=== PATIENT | female | born 1935 | race Caucasian/White ===

== ENCOUNTER 2020-03-02 10:43 | Outpatient (CLI) | payer MEDICARE, BC, SELFPAY ==
--- NOTE | 2020-03-02 10:50 | MM_ITS ---
WS: [id number] BILATERAL DIGITAL SCREENING MAMMOGRAPHY WITH CAD CLINICAL INFORMATION: SCREENING HISTORY: Screening mammogram. No current complaints. COMPARISON: TECHNIQUE: Bilateral CC and MLO views. FINDINGS: Scattered fibroglandular densities bilaterally. No suspicious focal mass, asymmetry, calcifications, or architectural distortion. No evidence of malignancy. Punctate and lucent centered calcifications. Vascular calcification. MM/[id number] IMPRESSION: BI-RADS: 2-Benign FOLLOW UP: 1 Year Follow-up Recommend return to annual screening mammography.
== END 2020-03-02 10:44 | disposition home or self-care (01) ==
LOC: RADSHAW 10:48
PROVIDERS: PCP Family Medicine; Visit Provider Family Medicine
DX: Z12.31 Encounter for screening mammogram for malignant neoplasm of breast (principal)
CPT/HCPCS: 77067

== ENCOUNTER 2021-06-06 09:13 | Outpatient (CLI) | payer MEDICARE, BC, SELFPAY ==
--- NOTE | 2021-06-06 09:25 | MM_ITS ---
WS: [id number] BILATERAL SCREENING DIGITAL MAMMOGRAM WITH CAD HISTORY: SCREENING COMPARISON: 02/23/2020 Bilateral CC and MLO views submitted. Computer aided detection analyzed. Breast composition: There are scattered areas of fibroglandular density. No suspicious masses, microc alcifications or architectural distortion. Benign calcifications in each breast. MM/[id number] IMPRESSION: BI-RADS: 2-Benign FOLLOW UP: 1 Year Follow-up
== END 2021-06-06 09:14 | disposition home or self-care (01) ==
LOC: RADSHAW 09:22
PROVIDERS: PCP Nurse Practitioner Family; Visit Provider Nurse Practitioner Family
DX: Z12.31 Encounter for screening mammogram for malignant neoplasm of breast (principal)
CPT/HCPCS: 77067

== ENCOUNTER 2022-06-27 10:24 | Emergency (ER) | payer MEDICARE, BC, SELFPAY ==
[2022-06-27 10:27] VITALS: BP 181/95; PULSE 79; RESP 18; TEMP 36.7; O2SAT 96; BMI 25.3
--- NOTE | 2022-06-27 10:50 | ED_ITS ---
HPI - Fall General: Chief Complaint: Fall Stated Complaint: Fall Time Seen by Provider: 06/27/22 10:27 Source: patient Mode of arrival: ambulatory History of Present Illness: 87 yo female presents emergency room via EMS after a fall at home. She had gone outside her slippers had some ice or water on it and when she was back in her kitchen she slipped and fell hit her right upper arm on a cabinet. She did not strike her head she did not lose consciousness she is complaining of pain in proximal humerus she received 100 mcg of fentanyl in the field. She denies any pain or injury anywhere else. Any movement or even light palpation precipitates severe pain. MD complaint: fall Onset (ago): minute(s) Fall from: standing Place fall occurred: home Loss of consciousness: None Prolonged down time: no Symptoms prior to fall: none Context: tripped/slipped Location of injury - extremities: Right: arm Quality: sharp Associated symptoms-after fall: Denies abdominal pain, chest pain, confusion, difficulty walking, headache(s), hematuria, lightheadedness, neck pain, numbness, short of breath, vertigo or weakness Review of Systems Const: Denies: fever(s), chills, body aches, change in appetite, fatigue or malaise ENMT: Denies: throat pain, ear or mastoid pain, nasal discharge or nasal congestion Card: Denies: chest pain or lightheadedness Resp: Denies: dyspnea, productive cough or non-productive cough GI: Denies: abdominal pain, nausea or vomiting : Denies: hematuria Musc: Denies: neck pain Skin/Breast: Denies: rash or pruritus Neuro: Denies: headache(s), difficulty walking, vertigo or confusion PFS ED PFSH: Medical History (Updated 06/27/22 @ 12:19 by Stanley Valencia DO) No significant past medical history Surgical History (Updated 06/27/22 @ 10:57 by Stanley Valencia DO) No pertinent past surgical history Social History (Updated 06/27/22 @ 10:58 by Stanley Valencia DO) Smoking and tobacco status: never smoked Alcohol intake: never Physical Exam Const: GENERAL APPEARANCE: cooperative and comfortable ORIENTATION/CONSCIOUSNESS: Yes awake, Yes oriented to person, Yes oriented to place and Yes oriented to time HENMT: COMMON NORMALS: normocephalic, atraumatic and hearing grossly normal bilaterally HEAD & SCALP: normocephalic and atraumatic Resp: COMMON NORMALS: normal respiratory effort, No retractions, No use of accessory muscles and clear to auscultation bilaterally AUSCULTATION: clear to auscultation bilaterally Cardio: COMMON NORMALS: regular rate, regular rhythm and No murmurs present (Cardio) RATE: regular rate RHYTHM: regular rhythm GI: COMMON NORMALS: Soft to palpation and No hepatosplenomegaly present AUSCULTATION: Yes normoactive bowel sounds PALPATION: Yes Soft to palpation, No Tenderness to palpation present (GI), No Guarding due to palpation present (GI) and Yes No hepatosplenomegaly present Extremity: COMMON NORMALS: capillary refill normal and no pedal edema NARRATIVE EXTREMITY EXAM: Moderate swelling and significant pain with palpation of the left proximal humerus Neuro: SENSORIUM/ORIENTATION: Yes oriented to person, Yes oriented to place and Yes oriented to time Skin: COMMON NORMALS: no rashes or lesions noted GENERAL SKIN EXAM: no luisa hes or lesions noted Course Vital Signs: Vital signs: Vital Signs Temperature 98.1 F 06/27/22 10:27 Pulse Rate 79 06/27/22 10:27 Respiratory Rate 18 06/27/22 10:27 Blood Pressure 181/95 06/27/22 10:27 Pulse Oximetry 96 06/27/22 10:27 Oxygen Delivery Me thod 06/27/22 10:27 MDM - Fall Medical Decision Making Fracture in the body of the scapula comminuted and slightly displaced. Dr. Servin is on-call reviewed with him he recommends sling and follow-up in the Ortho clinic. Reviewed with the patient prescribed hydrocodone to use as needed for pain. Case management make arrangements for follow-up. Medical Records I reviewed the patient's medical records. Lab Data I reviewed the patient's lab results. Radiology Impressions Humerus X-Ray 06/27/22 10:52 IMPRESSION: 1. No fracture or dislocation. Shoulder CT 06/27/22 11:24 IMPRESSION: 1. Slightly comminuted displaced fracture involving the body of the scapula. Overlapping fracture fragments. Displacement measures 1.1 cm 2. Overlap measures 4.5 cm with posterior displacement of the distal fragment. 3. 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 No visualized humeral fractures. No glenoid fractures. 4. Normal acromion and coracoid. 5. Visualized clavicle and AC joint appear normal. Notified Stanley Valencia DO at 06/27/2022 12:11 PM. Discharge Plan Discharge Patient Disposition: Home Clinical Impression: Fracture, scapula Condition: Stable Prescriptions: New hydrocodone-acetaminophen 5-325 mg tablet 1 tab PO Q6H PRN (Reason: pain) Qty: 25 0RF Discharge Orders: Discharge ED (Routine); Ordered 06/27/22 Ordered By: Stanley Valencia Referrals: Ofelia Brown FNP [Primary Care Provider] - Discharge Diet: Usual diet Discharge Activity: Limit activity as instructed Patient Instructions: Opioid Safety, Pain Management Activity Restrictions/Additional Instructions: Seen today after a fall you have a right scapula fracture. These usually are not repaired surgically. Is recommended to use a sling until you see orthopedics. Additionally you were given pain medications to take at home. Case management make arrangements for you to follow-up with orthopedics. Coding Level of Care Code ED Business Management Manager for [facility] Fwd Exam Detailed
--- NOTE | 2022-06-27 10:52 | XR_ITS ---
WS: [id number] Exam: [place] [id number] Date/Time of Exam: 06/27/2022 10:52 AM Reason For Exam: pain/fall No acute fracture or dislocation. Moderate degenerative change at the glenohumeral joint. Soft tissue s are unremarkable. XR/[place] [id number] IMPRESSION: 1. No fracture or dislocation.
--- NOTE | 2022-06-27 11:24 | CT_ITS ---
WS: [id number] NONCONTRAST CT RIGHT SHOULDER TECHNIQUE: Noncontrast CT RIGHT shoulder with coronal and sagittal reformatted images. CLINICAL INFORMATION: proximal humerus pain after fall COMPARISON: Radiograph June 27, 2022 DLP: 184.[address] scans at [facility] use at least one of these dose optimization techniques: automated e xposure control; mA and/or kV adjustment per patient size (includes targeted exams where dose is matc hed to clinical indication); or iterative reconstruction. FINDINGS:Comminuted displaced fracture involving the body of the scapula with dorsal angulation. Post erior displacement with overlapping scapula body fragments. Area of overlap measures approximately 4. 4 cm. Acromion appears intact. Coracoid appears intact. Mild degenerative arthritis AC joint. Distal clavicle is normal in appearance. Mild narrowing of the subacromial space. Advanced degenerative arthritis glenohumeral joint with subchondral cystic changes . Proximal humeral shaft appears normal. Normal glenoid. Visualized RIGHT ribs are normal in appearan ce. Partially visualized RIGHT lung is normal. CT/CT shoulder RT wo con* [id number] IMPRESSION: 1. Slightly comminuted displaced fracture involving the body of the scapula. O verlapping fracture fragments. Displacement measures 1.1 cm 2. Overlap measures 4.5 cm with posterior displacement of the distal fragment. 3. 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 No v isualized humeral fractures. No glenoid fractures. 4. Normal acromion and coracoid. 5. Visualized clavicle and AC joint appear normal. Notified Stanley Valencia DO at 06/27/2022 12:11 PM.
--- NOTE | 2022-07-01 09:04 | DCPLANNER ---
Addendum entered by Sonia Vergara 07/11/22 10:54: Patient had a follow up appointment scheduled with ortho - patient did attend appointment. Addendum entered by Sonia Vergara 07/01/22 15:06: Patient has a follow up appointment scheduled for July at 11:[address] Servin, at ortho. Clinic will call patient with appointment information. Original Note: technology program manager had message to schedule a follow up appointment for patient with ortho. technology program manager sent patients information to the front office staff at ortho. Patients information will be printed and reviewed. Clinic will call patient with appointment information.
== END 2022-06-27 13:30 | disposition home or self-care (01) ==
PROVIDERS: Emergency Provider Family Medicine; PCP Nurse Practitioner Family
DX: S42.111A Displaced fracture of body of scapula, right shoulder, initial encounter for closed fracture (principal); W01.0XXA Fall on same level from slipping, tripping and stumbling without subsequent striking against object, initial encounter
CPT/HCPCS: 73060; 73200; 99284

== ENCOUNTER → 2022-07-10 10:59 | Outpatient (BNVA) | payer OTHER, SELFPAY | PROVIDERS: PCP Nurse Practitioner Family; Referring Provider Family Medicine; Visit Provider Student in an Organized Health Care Education/Training Program | DX: S42.114A Nondisplaced fracture of body of scapula, right shoulder, initial encounter for closed fracture (principal); W19.XXXA Unspecified fall, initial encounter | CPT/HCPCS: 73010 ==

== ENCOUNTER → 2022-09-01 10:37 | Outpatient (BNVA) | payer MEDICARE, SELFPAY | PROVIDERS: PCP Nurse Practitioner Family; Visit Provider Student in an Organized Health Care Education/Training Program | DX: S42.101A Fracture of unspecified part of scapula, right shoulder, initial encounter for closed fracture (principal); X58.XXXA Exposure to other specified factors, initial encounter | CPT/HCPCS: 73010; 73020; 99213 ==

== ENCOUNTER 2022-09-29 11:08 | Outpatient (CLI) | payer MEDICARE, SELFPAY ==
--- NOTE | 2022-09-29 11:18 | MM_ITS ---
WS: [id number] VIEWS: MLO and CC views both breasts. 3D digital tomosynthesis is also included in this exam. Comparison made with prior exam of 01/05/2017, 01/12/2018, 01/27/2019, 03/02/2020, 01/04/2021.. Findings: There was no sign of mass, architectural distortion or suspicious calcification in either breast. Sc attered fibroglandular densities MM/[place] [id number] Impression: BI-RADS: 2-Benign FOLLOW-UP: 1 Year Follow-up This mammogram was also analyzed by the Computer Aided Detection System R2 Imag e Retention Specialist.
== END 2022-09-29 11:09 | disposition home or self-care (01) ==
PROVIDERS: PCP Nurse Practitioner Family; Visit Provider Nurse Practitioner Family
DX: Z12.31 Encounter for screening mammogram for malignant neoplasm of breast (principal)
CPT/HCPCS: 77063; 77067

== ENCOUNTER → 2022-11-21 09:31 | Outpatient (BNVA) | payer MEDICARE, SELFPAY | PROVIDERS: PCP Nurse Practitioner Family; Visit Provider Student in an Organized Health Care Education/Training Program | DX: S42.101A Fracture of unspecified part of scapula, right shoulder, initial encounter for closed fracture (principal); X58.XXXA Exposure to other specified factors, initial encounter | CPT/HCPCS: 73010; 99213 ==

== ENCOUNTER 2024-01-24 13:47 | Emergency (ER) | payer MEDICARE, SELFPAY ==
[2024-01-24] VITALS (7 sets, daily range): BP systolic 147–192; BP diastolic 82–107; PULSE 88–138; RESP 18; TEMP 36.7; O2SAT 97–98
--- NOTE | 2024-01-24 13:50 | ECG_ITS ---
[facility] Test Date: 2024-01-24 Pat Name: Maria Del Carmen Fonseca Department: Room: Gender: Female Television Program Director: : 1935 Requested By: Maxwell Burton Order Number: [id number] Breonna MD: Ashwin Hall M.D. Measurements Intervals Howard Rate: 133 P: 77 CA: 154 QRS: 42 QRSD: 81 T: 64 QT: 377 QTc: 562 Interpretive Statements SINUS TACHYCARDIA NONSPECIFIC ST & T-WAVE ABNORMALITY ABNORMAL RHYTHM ECG No previous ECG available for comparison Electronically Signed On 01-25-2024 9:23:03 CDT by Ashwin Hall M.D. [id number]
--- NOTE | 2024-01-24 13:56 | CTR_ITS ---
PROCEDURE INFORMATION: Exam: CT Head Without Contrast Exam date and time: 01/24/2024 2:13 PM Age: 88 years old Clinical indication: Injury or trauma; Fall; Blunt trauma (contusions or hematomas); Injury details: Hit lt side of head TECHNIQUE: Imaging protocol: Computed tomography of the head without contrast. Radiation optimization: All CT scans at this facility use at least one of these dose optimization techniques: automated exposure control; mA and/or kV adjustment per patient size (includes targeted exams where dose is matched to clinical indication); or iterative reconstruction. COMPARISON: No relevant prior studies available. RADIATION DOSE METRICS: Total DLP (mGy-cm): 1028.58 FINDINGS: Brain: There is a 2 mm posterior parafalcine subdural hematoma extending along the falx cerebri and right tentorium. Bilateral periventricular white matter hypodensities consistent with chronic ischemic small vessel disease. No recent infarct, or mass effect. Cerebral ventricles: No ventriculomegaly. Paranasal sinuses: Visualized sinuses are unremarkable. No fluid levels. Mastoid air cells: Visualized mastoid air cells are well aerated. Orbital cavities: Post bilateral cataract surgery. Bones: Unremarkable. No acute fracture. Soft tissues: There is a left frontoparietal subgaleal hematoma. CT/CT head wo con* [id number] IMPRESSION: 2 mm posterior parafalcine subdural hematoma extending along the right tentorium. No midline shift or uncal herniation.
--- NOTE | 2024-01-24 14:58 | ED_ITS ---
HPI - Head Injury General: Chief complaint: Head Injury Stated complaint: HEAD LAC S/P FALL Time Seen by Provider: 01/24/24 13:50 History of Present Illness: 88-year-old female presents emergency de partment by EMS. She was exiting [employer] and lost her balance falling back and hitting her head. She has a hematoma on the left occipital or parietal region according to EMS. Patient denies loss of consciousness. Patient denies headache. She denies nausea or vomiting. She reports taking NSAIDs but does not take aspirin, traditional antiplatelet agents or anticoagulants. She denies any neck pain, extremity pain, chest pain, back pain. She denies any presyncope. Patient reports to us that her heart rate is usually very elevated. It was 138 upon arrival. An EKG was done and showing sinus tachycardia. Her blood pressure was also significantly elevated. As she started to relax it began to come down. She says her normal heart rate is higher than normal people . She denies other concerns. Associated symptoms: Deny nausea, neck pain, syncope or vomiting Review of Systems General: Reports: 10 or more systems reviewed and unremarkable except in HPI and below Const: Denies: fever(s), chills or body aches Eyes: Denies: change in vision Card: Denies: chest pain, edema or syncope Resp: Denies: dyspnea or productive cough GI: Denies: abdominal pain, nausea, vomiting or diarrhea : Denies: flank pain, dysuria or urinary frequency Musc: Denies: neck pain, back pain, extremity pain or extremity swelling Skin/Breast: Denies: rash or erythema Neuro: Denies: headache(s), numbness in extremities, weakness in extremities, lack of coordination or difficulty walking [facility] ED PFSH: Medical History No significant past medical history Surgical History No pertinent past surgical history Social History Smoking and tobacco/nicotine status: never used tobacco/nicotine Alcohol intake: never Physical Exam Narrative: EXAM NARRATIVE: awake, alert, NAD. C spine cleared. No spine ttp. Chest NT. AROM and PROM all extremities wnl and no injuries. A&Ox4 anxious but joking and trying to remain calm Const: COMMON NORMALS: no limitations, alert and well nourished EXAM LIMITATIONS: no altered mental status HENMT: COMMON NORMALS: normocephalic and external ears normal HEAD & SCALP: normocephalic and hematoma (Left parietal region.--pinpoint hole with scab, not bleeding); no To's sign EXTERNAL EAR: Yes external ears normal MOUTH: no muffled voice Eye: COMMON NORMALS: EOMs intact bilaterally, conjunctivae normal and no scleral icterus CONJUNCTIVA: Yes conjunctivae normal Neck/C-Spine: COMMON NORMALS: no JVD GENERAL: Yes normal visual inspection and Yes trachea midline OTHER: C-spine is nontender. No distracting injuries. Firm palpation reveals no discomfort. Active range of motion is painless and normal. Chest: OTHER: Non-tender Resp: COMMON NORMALS: normal respiratory effort, No use of accessory muscles and clear to auscultation bilaterally AUSCULTATION: clear to auscultation bilaterally Cardio: COMMON NORMALS: no JVD and regular rhythm; negative for regular rate RATE: abnormal rate RHYTHM: regular rhythm GI: COMMON NORMALS: Soft to palpation and non-tender PALPATION: Yes Soft to palpation and No Guarding due to palpation present (GI) Back/Pelvis: COMMON NORMALS: thoracic and lumbar spine normal to inspection and no thoracic nor lumbar tenderness Extremity: COMMON NORMALS: normal to inspection and full ROM Neuro: COMMON NORMALS: moves all extremities, no focal motor deficits and no sensory deficits noted SENSORIUM/ORIENTATION: Yes alert SPEECH: speech normal Psych: COMMON NORMALS: mental status grossly normal, Normal thought process present, cooperative, normal affect and speech normal SPEECH: Yes normal speech THOUGHT PROCESS: Normal thought process present Skin: COMMON NORMALS: no rashes or lesions noted, turgor normal and no jaundice GENERAL SKIN EXAM: no rashes or lesions noted and turgor normal Course Vital Signs: Vital signs: Vital Signs Temperature 98.1 F 01/24/24 13:48 Pulse Rate 138 H 01/24/24 13:48 Blood Pressure 147/97 01/24/24 14:35 Pulse Oximetry 97 01/24/24 13:48 Oxygen Delivery Me thod Room Air 01/24/24 13:48 MDM - Head Injury Medcial Decision Making Fall from standing: Minor closed head injury w/o LOC: Hematoma--self contained and no longer bleeding CT head: 2mm subdural without shift/mass effect Discussed with Dr Bond at [facility] in [place] who accepted 1500 C spine cleared by [facility]. HR elevated--seems to be much worse when she's anxious but hasn't been below 100 bpm. EKG 1350 showed sinus tach w/o ischemic changes or ectopy. I have ordered some anxiolytic and blood pressure medication in preparation for transfer to [facility]. This is a venous subdural bleed. Nonetheless, would like to keep her heart rate and blood pressure reasonable. I have also sent a PT and PTT as a precaution. At this time patient is alert and oriented with normal mental status. She can be transported by ground. Lab Data Radiology Impressions Head CT 01/24/24 13:56 IMPRESSION: 2 mm posterior parafalcine subdural hematoma extending along the right tentorium. No midline shift or uncal herniation. ADDENDUM: 01/24/24 1445 THIS REPORT CONTAINS FINDINGS THAT MAY BE CRITICAL TO PATIENT CARE. The findings were verbally communicated via telephone conference with LOYDA JEFFERY at 2:42 PM CDT on 01/24/2024. The findings were acknowledged and understood. All radiology interpretation(s) finalized by discharge Discharge Plan Discharge Patient Disposition: Xfer Short-Term Hosp Clinical Impression: Subdural hematoma, Hematoma of left parietal scalp Closed head injury Qualifiers: Encounter type: initial encounter Qualified Code(s): S09.90XA - Unspecified injury of head, initial encounter Condition: Stable Referrals: Ofelia Brown FNP [Primary Care Provider] - Coding Level of Care Code ED Mergers And Acquisitions Manager for [facility] Ochoa
[2024-01-24] MEDS: acetaminophen 500 mg Tablet PO (15:07)
[2024-01-24] MEDS: ALPRAZolam 0.5 mg Tablet PO (15:07)
[2024-01-24] MEDS: cloNIDine 0.1 mg Tablet PO (15:08)
[2024-01-24] MEDS: labetalol 5 mg/mL SDV 20mL 10 MG IVP (15:09)
[2024-01-24 15:10] LABS: Basophils # 0.1 10^3/uL (0.0-0.1); Basophils % 0.6 %; Eosinophils # 0.3 10^3/uL (0.0-0.8); Eosinophils % 2.2 %; Hematocrit 41.1 % (36-47); Lymphocytes # 1.5 10^3/uL (0.8-4.8); Lymphocytes % 12.7 %; Mean Corpuscular HGB Conc 33.1 g/dL (30-55); Mean Corpuscular Hemoglobin 30.2 pg (27-33); Mean Corpuscular Volume 91.1 fl (85-98); Mean Platelet Volume 10.1 fL (7.4-10.4); Monocytes # 1.1 10^3/uL (0.2-0.9); Monocytes % 9.5 %; Neutrophils # 8.64 10^3/uL (1.8-7.7); Neutrophils % 74.5 %; Nucleated Red Blood Cells % 0 %; Platelet Count 259 10^3/cmm (157-399); Red Blood Count 4.51 10^6/uL (3.85-5.65); White Blood Count 11.61 10^3/uL (3.29-11.43)
[2024-01-24 15:21] LABS: INR 0.94 (0.8-1.2)
[2024-01-24 15:22] LABS: Partial Thromboplastin Time 31.4 SECONDS (23.9-36.7)
[2024-01-24 15:26] LABS: Alanine Aminotransferase 12 U/L (0-33); Albumin Level 4.1 g/dL (3.5-5.2); Alkaline Phosphatase 75 U/L (35-105); Anion Gap 13.9 (5-19); Aspartate Amino Transferase 15 U/L (0-32); Blood Urea Nitrogen 18 mg/dL (8-23); Calcium 9.8 mg/dL (8.5-10.5); Carbon Dioxide 25 mmol/L (22-29); Chloride 105 mmol/L (98-107); Globulin 2.5 g/dL (1.3-4.6); Glucose 148 mg/dL (65-115); Osmolality Calculated 295 mOsm/kg (285-295); Potassium 3.9 mmol/L (3.5-5.1); Sodium 140 mmol/L (136-145); Total Bilirubin 0.3 mg/dL (0.15-1.2); Total Protein 6.6 g/dL (6.6-8.7)
[2024-01-24 15:34] LABS: Creatinine Clr Calc Pharmacy 37.4951
== END 2024-01-24 16:41 | disposition short-term general hospital (02) ==
PROVIDERS: Emergency Provider Emergency Medicine; PCP Nurse Practitioner Family
DX: S00.03XA Contusion of scalp, initial encounter (principal); S06.5XAA Traumatic subdural hemorrhage with loss of consciousness status unknown, initial encounter; R00.0 Tachycardia, unspecified; W01.0XXA Fall on same level from slipping, tripping and stumbling without subsequent striking against object, initial encounter; Y92.22 Religious institution as the place of occurrence of the external cause
CPT/HCPCS: 36415; 70450; 80053; 85025; 85610; 85730; 93005; 96374; 99285; J3490

== ENCOUNTER → 2024-04-22 10:01 | Outpatient (BNVA) | payer MEDICARE, SELFPAY | PROVIDERS: PCP Nurse Practitioner Family; Visit Provider Physician Assistant | DX: M17.12 Unilateral primary osteoarthritis, left knee | CPT/HCPCS: 20610; 73560; 73565; J3301; L1852 ==

== ENCOUNTER 2024-04-22 11:29 | Outpatient (CLI) | payer MEDICARE, SELFPAY | END 2024-04-22 11:30 | disposition home or self-care (01) | LOC: SPT 11:30 | PROVIDERS: PCP Nurse Practitioner Family; Visit Provider Physician Assistant | DX: Z46.89 Encounter for fitting and adjustment of other specified devices (principal); M17.12 Unilateral primary osteoarthritis, left knee | CPT/HCPCS: 20610; 99213; J3301; L1852 ==